=== PATIENT | female | born 1985 | race Caucasian/White ===

== ENCOUNTER 2018-01-03 10:02 | Inpatient (IN) | payer BC ==
[2018-01-02 09:19] VITALS: BMI 29.9
[2018-01-03] MEDS ORDERED: CITRIC ACID-SODIUM CITRATE 15 ML CUP PO ONE (10:15)
[2018-01-03] MEDS ORDERED: LACTATED RINGERS 1,000 ML IV ONE (10:15)
[2018-01-03] MEDS ORDERED: ceFAZolin IN SWFI 2 GM/20 ML SYRINGE IVP ONE (10:30)
[2018-01-03 10:56] LABS: Basophils % (A) 0 %; Eosinophils # (A) 0.1 k/uL (0-0.7); Eosinophils % (A) 1 %; HCT 34.2 % (34.0-46.0); HGB 11.8 gm/dL (11.4-16.0); Lymphocytes # (A) 1.8 k/uL (1.0-4.8); Lymphocytes % (A) 22 %; MCH 30.6 pg (25.0-35.0); MCHC 34.6 g/dL (31.0-37.0); MCV 88.3 fL (80.0-100.0); Monocytes # (A) 0.5 k/uL (0-1.0); Monocytes % (A) 7 %; Neutrophils # (A) 5.4 k/uL (1.3-7.7); Neutrophils % (A) 68 %; Platelet Count 197 k/uL (150-450); RBC 3.87 m/uL (3.80-5.40); RDW 13.7 % (11.5-15.5)
[2018-01-03] MEDS ORDERED: DEXAMETHASONE SOD PHOS (MDV) 100 MG/10 ML VIAL ONE (12:08)
[2018-01-03] MEDS ORDERED: MORPHINE SULFATE (PF) 0.3 MG/0.3 ML SYR ONE (12:08)
[2018-01-03] MEDS ORDERED: OXYTOCIN 10 UNIT/ML 1 ML VIAL ONE (12:08)
[2018-01-03] MEDS ORDERED: NALBUPHINE 10 MG/ML AMPUL ONE (12:08)
[2018-01-03] MEDS ORDERED: KETOROLAC 30 MG/ML 1 ML VIAL ONE (12:08)
[2018-01-03] MEDS ORDERED: ONDANSETRON 4 MG/2 ML VIAL ONE (12:08)
[2018-01-03] MEDS ORDERED: PHENYLEPHRINE-0.9% NACL SYG 1 MG/10 ML SYRINGE ONE (12:08)
--- NOTE | 2018-01-03 12:18 | P.HPOB ---
History of Present Illness H&P Date: 01/03/18 Chief Complaint: Here for elective repeat This is a 32-year-old white female 2 para 1001 EDC 01/10/2018 at 39 weeks gestation. Patient presents today for repeat low transverse section, declining option for tubal ligation. Fetus is been active throughout the . She denies vaginal bleeding fluid leakage or uterine contractions. Past medical history is significant for anxiety and depression. Past surgical history section low-transverse 2015, knee surgery of the left knee in 2000 arthroscopic the, and left hip precancerous cells removed of the skin. [place] teeth extracted in 2003. Current medications vitamins daily. ALLERGIES none known. Family history significant for basal cell carcinoma and diabetes. Past obstetric history 7 lbs. 7 oz. male infant via for prolonged rupture of membranes and arrest of dilatation and descent. Social history patient is , she is a teacher locally, she denies alcohol drug use or tobacco use. history is significant for blood type O+, rubella status immune. Urine culture, group B strep cultures, hepatitis B surface antigen, HIV testing , gonorrhea and chlamydia cultures all negative. One-hour Glucola 61. On exam this is a pleasant white female, 5 foot 5 inches, 180 pounds, blood pressure 137/77, vital signs are stable and patient is afebrile. The general physical exam is within normal limits. The extremities reveal trace edema. The abdomen is obviously gravid with a fundal height of 40 cm. The chest is clear in all [place]. heart rate is consistent with reactive NST. Impression: 39 week intrauterine , previous section, declining option for , declining for tubal ligation. Plan: For repeat low transverse section now, spinal analgesia with Duramorph. All questions risks and benefits reviewed. Review of Systems Constitutional: Reports as per HPI Past Medical History Past Medical History: No Reported History Additional Past Medical History / Comment(s): current tx for upper resp. History of Any Multi-Drug Resistant Organisms: None Reported Past Surgical History: Section, Orthopedic Surgery Additional Past Surgical History / Comment(s): [place] teeth removal 2003, arthroscopic lt knee Past Anesthesia/Blood Transfusion Reactions: Postoperative Nausea & Vomiting ( PONV) Past Psychological History: No Psychological Hx Reported, Anxiety, Depression Smoking Status: Never smoker Past Alcohol Use History: None Reported Past Drug Use History: None Reported - Past Family History Mother Family Medical History: No Reported History Medications and Allergies Home Medications Medication Instructions Recorded Confirmed Type Noh-Pqrr-Bqjom Acid 1 cap PO DAILY 12/22/15 01/03/18 History [-U Capsule] Azithromycin [Zithromax Z-pack] 0 mg PO DIRECTED 01/02/18 01/03/18 History Pseudoephedrine [Sudafed] 30 mg PO BID PRN 01/02/18 01/03/18 History Allergies Allergy/AdvReac Type Severity Reaction Status Date / Time No Known Allergies Allergy Verified 01/02/18 09:09 Exam - Vital Signs Vital signs: Vital Signs Temp Pulse Resp BP Pulse Ox 01/03/18 10:15 98.3 F 84 18 137/77 99 Intake and Output 01/02/18 01/03/18 01/03/18 22:59 06:59 14:59 Other: Weight 81.647 kg Results Result Diagrams: 01/03/18 10:40 Assessment and Plan Plan: For repeat low transverse section at this time. Prophylactic antibiotics. All risks and benefits thoroughly reviewed. Tubal ligation option declined. Time with Patient: Less than 30
[2018-01-03] MEDS ORDERED: NALOXONE 0.4 MG/ML 1 ML VIAL IV PRN ×2 (12:42→13:04)
[2018-01-03] MEDS ORDERED: MORPHINE SULFATE 4 MG/0.8 ML SYRINGE (INJ) IVP PRN (12:42)
[2018-01-03] MEDS ORDERED: diphenhydrAMINE 50 MG/ML 1 ML VIAL IVP PRN ×3 (12:42→13:04)
[2018-01-03] MEDS ORDERED: ONDANSETRON 4 MG/2 ML VIAL IVP PRN ×2 (12:42→13:04)
[2018-01-03] MEDS ORDERED: SIMETHICONE 80 MG CHEWABLE PO PRN (13:04)
[2018-01-03] MEDS ORDERED: ZOLPIDEM 5 MG TAB PO PRN (13:04)
[2018-01-03] MEDS ORDERED: diphenhydrAMINE 50 MG CAP PO PRN (13:04)
[2018-01-03] MEDS ORDERED: diphenhydrAMINE 25 MG CAP PO PRN (13:04)
[2018-01-03] MEDS ORDERED: HYDROcodone/APAP 5-325MG 1 EACH TAB PO PRN (13:04)
[2018-01-03] MEDS ORDERED: ACETAMINOPHEN TAB 325 MG TAB PO PRN (13:04)
[2018-01-03] MEDS ORDERED: METOCLOPRAMIDE 5 MG/ML 2 ML VIAL IVP PRN (13:04)
--- NOTE | 2018-01-03 13:04 | P.OP ---
Date of Procedure: 01/03/18 Preoperative Diagnosis: 39 week intrauterine , previous declining . Postoperative Diagnosis: Same, liveborn male, right occiput transverse position, nuchal cord 1 Procedure(s) Performed: Repeat low transverse section Anesthesia: spinal Surgeon: Manasa Hughes Mailroom Courier #1: Barbara Ulloa Estimated Blood Loss (ml): 400 IV fluids (ml): 900 Urine output (ml): 200 Pathology: other (Placenta) Condition: stable Disposition: PACU Description of Procedure: Patient is brought to the operating room where a spinal analgesia is administered without difficulty. She's placed in the dorsal supine position with left lateral uterine displacement. Antibiotics are given. The appropriate timeout is performed to assure proper patient and procedural identification. Analgesia is checked and noted to be adequate. The abdomen is prepped and draped in usual sterile fashion. A repeat low transverse skin incision is made with excision of the previously healed a thickened scar in a wedge like maneuver. Subcutaneous tissue is entered. Fascia is identified, incised, and opened bilaterally with curved Santana scissors. Peritoneum is next identified and incised, there is no bowel or bladder involvement. The bladder is noted to be scarred high on the lower uterine segment and therefore this is mobilized with Metzenbaum scissors and swept well from the operative field to avoid bladder and/or ureteral injury. The uterus is incised in a low transverse fashion. Artificial amniorrhexis reveals clear fluid. 's head is delivered in the right occiput transverse position. There was a nuchal cord 1 that was reduced. The oropharynx, nasopharynx, and external nares are all bulb suctioned on the abdomen. Patient is officially delivered of a liveborn male at 1231 hrs. Umbilical cord is doubly clamped and ligated, he is handed to waiting nurses for evaluation where scores of 9 and 9 at one and 5 minutes respectively are given. The placenta is delivered manually, it is inspected and noted to be intact with trivascular cord at 1232 hrs. The uterus is then externalized and massaged. It is swept clean with a sterile sponge to avoid any retained products of conception. The uterine edges are grasped with Perez clamps and the uterus is closed in a two-step fashion, first layer running locking with 0 Vicryl, second layer imbricated with 0 Vicryl. Hemostasis is excellent. Bilateral tubes and ovaries appear normal to inspection. There are no uterine defects noted. The abdomen is suctioned with suction on guard above the uterus. The uterus is gently placed back into the abdominal cavity and bilateral gutters are inspected and cleaned. Again, hemostasis is excellent. Peritoneum was allowed to close by secondary intention. Fascia is closed in a running stitch of 0 Vicryl with over ligation in the midline. Subcutaneous tissue is irrigated, noted to be clean and dry. Subcutaneous tissue is reapproximated in a running stitch of 3-0 Vicryl. 4-0 undyed Monocryl is used in a subcuticular fashion for final skin closure. Long Steri-Strips are applied with Mastisol. Uterus is massaged. All sponge needle and enhancement counts are correct. Rodríguez is noted to be draining clear urine. Patient is brought back to the recovery room in excellent condition with stable vital signs including a pulse of 80, 100% O2 saturation, blood pressure 112/65. Patient and her are requesting circumcision further son.
[2018-01-03] MEDS: LACTATED RINGERS 1,000 ML IV SCH ×3 (14:57→23:06)
[2018-01-03] MEDS: KETOROLAC 30 MG/ML 1 ML VIAL IVP SCH (19:55)
[2018-01-03] MEDS: SENNOSIDES-DOCUSATE SODIUM 1 EACH TAB PO SCH (20:27)
[2018-01-04] MEDS: KETOROLAC 30 MG/ML 1 ML VIAL IVP SCH ×4 (02:53→20:14)
--- NOTE | 2018-01-04 07:16 | P.PN ---
Progress Note - Text Date:01/04 Time:640a, Patient is status post . Patient seen this morning with VAS score of 2. Patient had complains of pruritus and nausea/vomiting yesterday. Patient has a past history of sinusitis and motion sickness and was complaining of headache. She was given caffeine by mouth yesterday. She is comfortable and doing well today.
--- NOTE | 2018-01-04 09:02 | P.PN ---
Subjective Progress Note Date: 01/04/18 Slept well. Pain well managed. Positive flatus. Experienced motion sickness last night with dizziness, now resolved. Objective - Vital Signs Vital signs: Vital Signs Temp 98.4 F 01/04/18 04:00 Pulse 85 01/04/18 04:00 Resp 18 01/04/18 07:40 BP 111/66 01/04/18 04:00 Pulse Ox 98 01/04/18 06:00 Intake & Output 01/03/18 01/04/18 01/04/18 18:59 06:59 18:59 Intake Total 2000 1600 Output Total 350 100 Balance 2000 1250 -100 Weight 81.647 kg Intake: IV 2000 Lactated Ringers 1,000 ml 2000 @ 125 mls/hr IV .Q8H VINCENT Rx#:[id number] Intake, IV Titration 1000 Amount Lactated Ringers 1,000 ml 1000 @ 125 mls/hr IV .Q8H VINCENT Rx#:[id number] Tube Feeding 600 Output: Urine 350 100 Uretheral (Rodríguez) 100 Other: # Voids 1 1 - Constitutional General appearance: Present: average body habitus, cooperative - EENT Eyes: Present: PERRLA ENT: Present: hearing grossly normal - Neck Neck: Present: normal ROM - Respiratory Respiratory: bilateral: CTA - Cardiovascular Rhythm: regular - Gastrointestinal Gastrointestinal Comment(s): Fundus firm, midline, symmetric, 18 week size, nontender. Low transverse incision clean and dry, intact, Steri-Strips applied. General gastrointestinal: Present: normal bowel sounds - Integumentary Integumentary: Present: normal - Neurologic Neurologic: Present: CNII-XII intact - Musculoskeletal Musculoskeletal: Present: strength equal bilaterally - Psychiatric Psychiatric: Present: A&O x's 3, appropriate affect, intact judgment & insight - Labs CBC & Chem 7: 01/03/18 10:40 Assessment and Plan Assessment: Postoperative day #1, doing well. Plan: Continue postoperative care. Advanced diet and activity, circumcision now, likely discharge home tomorrow. Time with Patient: Less than 30
[2018-01-04 09:11] LABS: Basophils % (A) 0 %; Eosinophils # (A) 0.1 k/uL (0-0.7); Eosinophils % (A) 0 %; HCT 29.6 % (34.0-46.0); Lymphocytes # (A) 1.9 k/uL (1.0-4.8); Lymphocytes % (A) 15 %; MCH 29.5 pg (25.0-35.0); MCHC 33.1 g/dL (31.0-37.0); Mean Platelet Volume 8.9; Monocytes # (A) 0.7 k/uL (0-1.0); Monocytes % (A) 6 %; Neutrophils # (A) 9.9 k/uL (1.3-7.7); Neutrophils % (A) 78 %; Platelet Count 205 k/uL (150-450); RBC 3.32 m/uL (3.80-5.40); RDW 13.5 % (11.5-15.5); WBC 12.7 k/uL (3.8-10.6)
[2018-01-04 09:14] LABS: HGB 9.8 gm/dL (11.4-16.0)
[2018-01-04] MEDS: SENNOSIDES-DOCUSATE SODIUM 1 EACH TAB PO SCH ×2 (10:04→20:14)
[2018-01-04] MEDS: LACTATED RINGERS 1,000 ML IV SCH (20:31)
[2018-01-05] MEDS: IBUPROFEN 600 MG TAB PO PRN ×2 (02:30→08:13)
[2018-01-05 04:47] VITALS: RESP 16
[2018-01-05] MEDS: SENNOSIDES-DOCUSATE SODIUM 1 EACH TAB PO SCH (08:13)
--- NOTE | 2018-01-05 08:52 | P.DS ---
Providers Date of admission: 01/03/18 10:02 Expected date of discharge: 01/05/18 Attending physician: Manasa Hughes Primary care physician: [facility] Course: This is a 32-year-old white female 2 para 1001 EDC 01/10/2018 who presented at 39 weeks gestation. Patient had a previous section and is declining the option for . Her was unremarkable, blood type O positive, rubella status immune. Please see my dictated history and physical for details. Patient was admitted and underwent a repeat low transverse section, she gave to a liveborn male infant with scores of 9 and 9 at one and 5 minutes respectively. He weighed 8 lbs. 4 oz. or 3730 g. Surgery went well, estimated blood loss 400 mL, please see my dictated operative note for details. This morning the patient is doing very well. She is voiding, inability and passing flatus without difficulty. Vital signs are stable and she is afebrile. Fundus is firm and in the midline, symmetric and 18 week size. Extremities are negative for edema. Circumcision has been performed. Infant is doing well. Breast-feeding is going well. She is requesting of her prescription for breast pump which has been written. Incisional care is reviewed in detail. Patient is in very good condition for discharge home later today. She will follow-up with me in the office in 2 weeks. I have reminded her no intercourse, tampons or douching. She will use Motrin or Aleve products as needed for pain, directions according to assistant commissioner. I've asked her to call me with any fevers shakes or chills, foul smelling or copious lochia, with the passage of large blood clots, with any pain not alleviated by [id number] products, or indeed with any concerns. Patient Condition at Discharge: Good Plan - Discharge Summary Discharge Rx Participant: No New Discharge Prescriptions: No Action Zqw-Wlcb-Wulbg Acid [-U Capsule] 1 cap PO DAILY Pseudoephedrine [Sudafed] 30 mg PO BID PRN PRN Reason: Congestion Azithromycin [Zithromax Z-pack] 0 mg PO DIRECTED Discharge Medication List Yen-Isbz-Hrhlw Acid [-U Capsule] 1 cap PO DAILY 12/22/15 [ History] Azithromycin [Zithromax Z-pack] 0 mg PO DIRECTED 01/02/18 [History] Pseudoephedrine [Sudafed] 30 mg PO BID PRN 01/02/18 [History] Follow up Appointment(s)/Referral(s): Manasa Hughes MD [STAFF PHYSICIAN] - 2 Weeks Discharge Disposition: HOME SELF-CARE
[2018-01-05 10:21] VITALS: BP 120/76; PULSE 85; TEMP 98.2
== END 2018-01-05 12:05 | disposition home or self-care (01) | DRG 766 ==
LOC: 4FBP 10:02
PROVIDERS: ADMIT Obstetrics & Gynecology; ATTEND Obstetrics & Gynecology
PROC: 00HU33Z Insertion of Infusion Device into Spinal Canal, Percutaneous Approach (ICD-10-PCS; 2018-01-03)
PROC: 3E0R3NZ Introduction of Analgesics, Hypnotics, Sedatives into Spinal Canal, Percutaneous Approach (ICD-10-PCS; 2018-01-03)
PROC: 10D00Z1 Extraction of Products of Conception, Low, Open Approach (ICD-10-PCS; principal; 2018-01-03 12:00)
DX: O34.211 Maternal care for low transverse scar from previous cesarean delivery (principal); O69.81X0 Labor and delivery complicated by cord around neck, without compression, not applicable or unspecified; Z37.0 Single live birth; Z3A.39 39 weeks gestation of pregnancy; Z80.8 Family history of malignant neoplasm of other organs or systems; Z83.3 Family history of diabetes mellitus; Z79.899 Other long term (current) drug therapy; Z86.59 Personal history of other mental and behavioral disorders
CPT/HCPCS: 85025; 86850; 86900; 86901; 88307

== ENCOUNTER → 2024-10-04 | Outpatient (CLI) | payer BC ==
[2024-10-04 11:00] LABS: Influenza A Not Detected (Not Detectd); Influenza B Not Detected (Not Detectd); RSV Not Detected (Not Detectd)
[2024-10-04 12:45] LABS: Basophils # (A) 0.02 X 10*3/uL (0.00-0.10); Basophils % (A) 0.4 %; Eosinophils # (A) 0.02 X 10*3/uL (0.04-0.35); Eosinophils % (A) 0.4 %; HCT 36.9 % (37.2-46.3); HGB 12.5 g/dL (12.0-15.0); Lymphocytes # (A) 2.71 X 10*3/uL (0.90-5.00); Lymphocytes % (A) 54.6 %; MCH 29.1 pg (27.0-32.0); MCHC 33.9 g/dL (32.0-37.0); Mean Platelet Volume 9.5 FL (9.5-12.2); Monocytes # (A) 0.53 X 10*3/uL (0.20-1.00); Monocytes % (A) 10.7 %; NRBC Per 100 WBC 0 X 10*3/uL (0.00-0.01); Neutrophils # (A) 1.66 X 10*3/uL (1.80-7.70); Neutrophils % (A) 33.5 %; Platelet Count 346 X 10*3/uL (140-440); RBC 4.29 X 10*6/uL (4.10-5.20); RDW 12.6 % (11.5-14.5); WBC 4.96 X 10*3/uL (4.50-10.00)
[2024-10-04 13:36] LABS: ALT 17 U/L (8-44); AST 15 U/L (13-35); Albumin 4.4 g/dL (3.8-4.9); Albumin/Globulin Ratio 1.76 Ratio (1.60-3.17); Alkaline Phosphatase 46 U/L (41-126); BUN/Creat Ratio 16.88 Ratio (12.00-20.00); Blood Urea Nitrogen 13.5 mg/dL (9.0-27.0); Calcium 9.4 mg/dL (8.7-10.3); Carbon Dioxide 26.1 mmol/L (21.6-31.8); Chloride 104 mmol/L (96-109); Chol/HDL Ratio 2.23 Ratio; Globulin 2.5 g/dL (1.6-3.3); Glucose 89 mg/dL (70-110); LDL Cholesterol,Calculated 84.2 mg/dL (0.0-131.0); Potassium 3.7 mmol/L (3.5-5.5); Sodium 141 mmol/L (135-145); Total Bilirubin 0.5 mg/dL (0.3-1.2); Total Protein 6.9 g/dL (6.2-8.2); VLDL Calculation 12.92 mg/dL (5.00-40.00)
== END | disposition home or self-care (01) ==
LOC: LABWHC1 09:40
PROVIDERS: ATTEND Family Medicine
DX: Z00.00 Encounter for general adult medical examination without abnormal findings (principal); I10 Essential (primary) hypertension; B89 Unspecified parasitic disease; Z79.899 Other long term (current) drug therapy
CPT/HCPCS: 36415; 80053; 80061; 82785; 84443; 85025; 87636